=== PATIENT | female | born 2005 | race Two or more races ===

== ENCOUNTER → 2024-10-10 | Outpatient (CLI) | payer MEDICAID, SELFPAY ==
--- NOTE | 2024-10-10 10:39 | XR_ITS ---
Examination: Lumbar spine, 5 views Technique: Lumbar spine AP, lateral, coned lateral lower lumbar spine, bilateral obliques 5 views Exam date and time: October 10, 2020 4:11 AM Indications: Low back pain radiating to the leg beginning one year ago Findings: Spina bifida S1 Adequate alignment lumbar vertebral bodies on the lateral view No lumbar fracture No spondylolisthesis No lumbar significant disc narrowing Impression: Adequate alignment lumbar vertebral bodies on the lateral view No lumbar fracture No significant lumbar disc narrowing
== END | disposition home or self-care (01) ==
LOC: CDIM 10:33
PROVIDERS: PCP Internal Medicine; Referring Provider Internal Medicine; Visit Provider Internal Medicine
DX: M54.50 Low back pain, unspecified (principal)
CPT/HCPCS: 72110

== ENCOUNTER → 2025-03-09 | Outpatient (CLI) | payer MEDICAID, SELFPAY ==
--- NOTE | 2025-03-09 16:00 | XR_ITS ---
Examination: Pelvic ultrasound, transabdominal, complete Technique: Transabdominal ultrasound of the pelvis performed using grayscale imaging Date and time of exam: March 09, 2025, 1548 hours INDICATIONS: Irregular menses 2 years FINDINGS: Uterus 8.2 cm no uterine mass or intrauterine gestation, endometrial stripe 0.6 cm Right ovary 5.2 cm arterial flow, 3.3 x 2.4 x 2.9 cm simple cyst Left ovary 2.5 cm arterial flow IMPRESSION: Right ovarian simple cyst, 3.3 x 2.4 x 2.9 cm
== END | disposition home or self-care (01) ==
PROVIDERS: PCP Nurse Practitioner Family; Referring Provider Nurse Practitioner Family; Visit Provider Nurse Practitioner Family
DX: N83.291 Other ovarian cyst, right side (principal)
CPT/HCPCS: 76856